=== PATIENT | male | born 1940 | race African-American/Black ===

== ENCOUNTER 2021-02-03 14:35 | Emergency (ER) | payer MEDICARE ==
[2014-04-16 21:18] VITALS: BP 148/76
[~2021-02-03 14:35] MED LIST: AMIODARONE 150 MG/3 ML VIAL ONE; CALCIUM CHLORIDE 1,000 MG/10 ML DISP.SYRIN ONE; EPINEPHrine SYRINGE 1 MG/10 ML SYRINGE ONE; LIDOCAINE 2% 100 MG/5 ML SYRINGE. ONE; SODIUM BICARB ADULT 8.4% 50 MEQ/50 ML DISP.SYRIN. ONE
--- NOTE | 2021-02-03 16:00 | ED.ADGEN ---
Past Medical History Past Medical History: Hypertension, Pneumonia, Other Additional Past Medical Histor: CARPAL TUNNEL Past Surgical History: Other Alcohol Use: None Drug Use: None General Adult EDM: Chief Complaint: CPR/FULL ARREST HPI: HPI: Patient is an 80-year-old male who presents to the emergency room in cardiac arrest. According to EMS they were originally called for respiratory distress. Upon their arrival patient was in cardiac arrest. They started CPR at that time. Patient was in ventricular fibrillation. He did get shocked twice. They did put an LMA and. He has received epinephrine 5 times prior to arrival. He has not received any other medications. Review of Systems: Review of Systems: Unable to be obtained Allergies: Allergies: Allergies Coded Allergies Type Severity Reaction Last Updated Verified No Known Drug Allergies 04/16/14 No Physical Exam: PE: General: unresponsive, toxic appearing, CPR in progress HEENT: Normocephalic, atraumatic, no drainage from eyes Neck: Supple, atraumatic, trachea midline Cardiology: No radial/femoral pulses bilaterally, no heart sounds Pulmonary: Bilateral breath sounds, diffuse crackles Abdomen: soft, nondistended Skin: intact, dry, cool Extremities: No deformities Neurology: nonresponsive, nonverbal, no movement, GCS 3 Current Patient Data: Labs: Laboratory Tests Test 02/03/21 15:21 SARS-CoV-2 Antigen (Rapid) Negative (NEGATIVE) EKG: EKG: [] Heart Score: C/O Chest Pain: N/A Risk Factors: Risk Factors: DM, Current or recent (<one month) smoker, HTN, HLP, family history of CAD, obesity. Risk Scores: Score 0 - 3: 2.5% MACE over next 6 weeks - Discharge Home Score 4 - 6: 20.3% MACE over next 6 weeks - Admit for Clinical Observation Score 7 - 10: 72.7% MACE over next 6 weeks - Early Invasive Strategies Radiology/Procedures: Radiology/Procedures: [] Course & Med Decision Making: Course & Med Decision Making Pertinent Labs and Imaging studies reviewed. (See chart for details) Patient is a 80 who presents to the emergency room in cardiac arrest. Patient had a witnessed arrest and did not receive compressions prior to EMS arrival. Patient received epinephrine and has been in ventricular tachycardia and asystole during transport. Upon arrival to the ED a pulse check was done and patient does not have a pulse and was in PEA. Bedside ultrasound was done to evaluate cardiac motion and patient does not have cardiac motion. Patient did have bilateral breath sounds on exam. Patient did get defibrillated prior to arrival for ventricular tachycardia. I-STAT was done and electrolytes were corrected as needed. Patient received epinephrine, amiodarone, lidocaine, sodium bicarb, calcium. After extensive efforts by EMS in the emergency room patient was pronounced at 1452. At that time there was no cardiac activity on ultrasound, patient had nonreactive pupils, no spontaneous breathing, and was in [asystole]. Family was notified and they were offered a chance to see their loved one and a ball mill mixer was offered. All of their questions were answered. Dragon Disclaimer: Dragon Disclaimer: This electronic medical record was generated, in whole or in part, using a voice recognition dictation system. PROCEDURE Procedure Intubation Performed by: Emely Reyes MD Consent: Verbal consent not obtained. The procedure was performed in an emergent situation. Required items: required blood products, implants, devices, and special equipment available Patient identity confirmed: arm band Time out: Immediately prior to procedure a "time out" was called to verify the correct patient, procedure, equipment, technical support internship and site/side marked as required. Indications: respiratory failure and airway protection Intubation method: direct Patient status: paralyzed (RSI) Preoxygenation: LMA Sedatives: etomidate Paralytic: succinylcoline Laryngoscope size: Mac 4 Tube size: 7.5 mm Tube type: cuffed Number of attempts: 1 Cords visualized: yes Post-procedure assessment: chest rise, BS = bilaterally none over epigastrum, +CO2 detector Breath sounds: equal and absent over the epigastrium Cuff inflated: yes Tube secured with: adhesive tape Chest x-ray interpreted by me. Chest x-ray findings: endotracheal tube in appropriate position Patient tolerance: Patient tolerated the procedure well with no immediate complications. Departure Departure Impression: Primary Impression: Cardiac arrest Additional Impression: Pulmonary edema Disposition: 20 Condition: Referrals: SILVA GRAMAJO M.D. (PCP) Problem Qualifiers EMELY REYES MD Feb 03, 2021 16:00
== END 2021-02-03 17:43 ==
LOC: ER 14:35
DX: I46.9 Cardiac arrest, cause unspecified (principal); Z20.822 Contact with and (suspected) exposure to COVID-19; J81.1 Chronic pulmonary edema; I10 Essential (primary) hypertension; Z98.890 Other specified postprocedural states
CPT/HCPCS: 31500; 87426; 92950; 99285; C9803; J0171; J0282; J3490; U0003